=== PATIENT | female | born 1995 | race Two or more races ===

== ENCOUNTER 2018-08-06 07:56 | Emergency (ER) | payer OTHER ==
[2018-08-06] MEDS ORDERED: ACETAMINOPHEN 500 MG TAB (08:38)
== END 2018-08-06 09:20 | disposition home or self-care (01) ==
LOC: E/R 07:56
DX: S30.810A Abrasion of lower back and pelvis, initial encounter (principal); V49.40XA Driver injured in collision with unspecified motor vehicles in traffic accident, initial encounter
CPT/HCPCS: 99283